=== PATIENT | male | born 1965 | race African-American/Black ===

== ENCOUNTER 2023-04-25 09:46 | Emergency (ER) | payer BC, SELFPAY ==
[2023-04-25] VITALS (15 sets, daily range): BP systolic 113–141; BP diastolic 81–94; PULSE 91–120; RESP 18–20; TEMP 37.1; O2SAT 95–98; BMI 20.4
--- NOTE | 2023-04-25 10:07 | ECG_ITS ---
[facility] Test Date: 2023-04-25 Pat Name: IZABELLA CARLTON Department: Room: - Gender: Male Director Of Regional Sales: : 1965 Requested By: SHARON AUUGST Order Number: [id number] Reading MD: SOFIA TINAJERO Measurements Intervals [place] Rate: 101 P: 63 IA: 142 QRS: 111 QRSD: 90 T: 14 QT: 336 QTc: 394 Interpretive Statements 1120 Sinus tachycardia 5120 Possible right ventricular hypertrophy 9140 abnormal rhythm ECG No previous ECG available for comparison Electronically Signed On 04-26-2023 6:51:53 EST by SOFIA TINAJERO
--- NOTE | 2023-04-25 10:24 | ED.GENADUL1 ---
HPI - General Adult General Chief complaint: Upper Respiratory Infection Stated complaint: FLU Time Seen by Provider: 04/25/23 10:21 Source: patient Mode of arrival: walk-in History of Present Illness HPI narrative: Patient is a 57-year-old male who is presenting to the Emergency Room Which chief complaint of nausea and vomiting anytime patient tries to eat something. Patient's having intermittent bilateral frontal headache, he's been taking to 600 mg tablets of ibuprofen daily to help with headaches. Patient did have intermittent nausea and vomiting with eating, he is able to drink with no difficulty. Patient also has cold sores on his mouth and tongue. 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 Patient says his multiple kids in Basketball obtain that has something similar. Patient has no recent traveling or trauma. Patient has no chest pain or shortness of breath. No abdominal pain. Patient works at [employer], and is also a lacrosse coach. 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 Patient looks very physically fit. . All systems are negative except as noted/marked. All systems reviewed and otherwise negative. . Nurses note and vital signs reviewed and patient is not hypoxic. General: The patient appears well and in no apparent distress. Patient is resting comfortably on cart. Patient is not toxic, lethargic, or listless Skin: Warm, dry, no pallor noted. There is no rash noted. No petechiae, purpura. Head: Normocephalic, atraumatic; Patient has evidence of herpes simplex to his lower lip, along with finger sores in his mouth as well, no other secondary signs of infection. Patient has clear drainage to the posterior pharynx, no cobblestoning. No unilateral swelling. Uvula midline, normal size. Eye: Normal conjunctiva, no drainage, EOMI. PERRL Ears, Nose, Mouth, and Throat: oral mucosa is moist. Nares patent. Mouth without vesicles. Cardiovascular: Regular Rate and Rhythm, no murmur, gallop, rub. Respiratory: Patient is in no distress, no accessory muscle use, lungs are clear to auscultation, no wheezing, rales or rhonchi Back: non-tender, no CVA tenderness bilaterally to percussion. No CT LS midline pain GI: soft, no tenderness to palpation, no masses appreciated. No rebound, guarding, or rigidity noted. No flank pain bilateral, No distention Musculoskeletal: Patient has full range of motion of all of the extremities, no motor, sensory, or focal neurological deficits Neurological: A&O x3, normal speech Psychiatric: Cooperative Related Data Previous Rx's Medication Instructions Recorded ondansetron 4 mg disintegrating 4 mg PO Q4H PRN nausea and 04/25/23 tablet vomiting 3 days #6 tabs prochlorperazine maleate 10 mg 10 mg PO Q8H PRN nausea and 04/25/23 tablet (Compazine) vomiting 24 hours #10 tabs Allergies Allergy/AdvReac Type Severity Reaction Status Date / Time No Known Drug Allergies Allergy Verified 04/25/23 10:03 Exam Constitutional Vital Signs, click to edit/add: Last Vital Signs Temp 98.7 F 04/25/23 09:57 Pulse 91 H 04/25/23 12:30 Resp 20 04/25/23 12:30 BP 138/87 04/25/23 11:45 Pulse Ox 98 04/25/23 12:30 O2 Del Method Room Air 04/25/23 09:57 Course Vital Signs Vital signs: Vital Signs Temperature 98.7 F 04/25/23 09:57 Pulse Rate 101 H 04/25/23 09:57 Respiratory Rate 18 04/25/23 09:57 Blood Pressure 141/94 H 04/25/23 09:57 Pulse Oximetry 96 04/25/23 09:57 Oxygen Delivery Method Room Air 04/25/23 09:57 Temperature 98.7 F 04/25/23 09:57 Pulse Rate 91 H 04/25/23 12:30 Respiratory Rate 20 04/25/23 12:30 Blood Pressure 138/87 04/25/23 11:45 Pulse Oximetry 98 04/25/23 12:30 Oxygen Delivery Method Room Air 04/25/23 09:57 Medical Decision Making MDM Narrative Medical decision making narrative: Patient felt slightly better after 1 L of IV fluid, IV Zofran, Compazine, Toradol and Decadron. Patient's lab testing showed no other significant abnormalities. Patient was given a work note this stated he was here today, and he missed work yesterday. Patient was sent home with prescription for Zofran and Compazine to use if needed in the future for Zofran or headache. Patient is extremely thankful and appreciative of help. No questions at discharge. Lab Data Labs: Lab Results 04/25/23 04/25/23 Range/Units 10:06 10:56 WBC 5.4 (4.0-11.0) 10^3/uL RBC 5.42 (4.70-6.10) 10^6/uL Hgb 15.8 (14.0-18.0) g/dL Hct 48.1 (42.0-54.0) % MCV 88.7 (80.0-94.0) fL MCH 29.2 (25.9-34.0) pg MCHC 32.8 (29.9-35.2) g/dL RDW 12.9 (11.0-15.0) % Plt Count 254 (150-450) 10^3/uL MPV 10.1 (9.5-13.5) fL Neut % (Auto) 60.7 (43.0-75.0) % Lymph % (Auto) 23.9 (20.5-60.0) % [place] % (Auto) 14.1 H (1.7-12.0) % Eos % (Auto) 0.4 L (0.9-7.0) % Baso % (Auto) 0.7 (0.2-2.0) % Neut # (Auto) 3.3 (1.4-6.5) 10^3/uL Lymph # (Auto) 1.3 (1.2-3.8) 10^3/uL [place] # (Auto) 0.8 (0.3-0.8) 10^3/uL Eos # (Auto) 0.0 (0.0-0.7) 10^3/uL Baso # (Auto) 0.0 (0.0-0.1) 10^3/uL Abs Immat Gran (auto) 0.01 (0.00-0.03) 10^3/uL Imm/Tot Granulo (auto) 0.2 (0.0-0.5) % Sodium 136 (136-145) mmol/L Potassium 4.2 (3.5-5.1) mmol/L Chloride 100 (98-107) mmol/L Carbon Dioxide 25.8 (21.0-32.0) mmol/L Anion Gap 14.4 BUN 12.0 (7.0-18.0) mg/dL Creatinine 1.22 (0.70-1.30) mg/dL Est GFR ( Amer) >60 (>=60) Est GFR (Non-Af Amer) >60 (>=60) BUN/Creatinine Ratio 9.8 Glucose 125 H (74-106) mg/dL Calcium 9.0 (8.5-10.1) mg/dL Total Bilirubin 0.6 (0.2-1.0) mg/dL AST 30 (15-37) U/L ALT 38 (16-63) U/L Alkaline Phosphatase 62 (46-116) U/L Troponin I High Sens 8.8 (4.0-76.1) pg/mL Total Protein 8.4 H (6.4-8.2) g/dL Albumin 3.5 (3.4-5.0) g/dL Globulin 4.9 g/dL Albumin/Globulin Ratio 0.7 Lipase 46.0 (16.0-77.0) U/L Influenza Type A Ag Negative Influenza Type B Ag Negative SARS-CoV-2 Ag (CV2AG) Negative (NEGATIVE) ECG Data Attestation: I personally reviewed and interpreted this ECG as follows: (EKG interpretation. Sinus tachycardia 101. Normal axis deviation. No acute ST elevation, no acute ectopy. QTC of 394. Artifact seen.) Discharge Plan Discharge Chief Complaint: Upper Respiratory Infection Clinical Impression: URI (upper respiratory infection), Headache, Flu-like symptoms, Herpes simplex Patient Disposition: Home, Self-Care Condition: Fair Prescriptions / Home Meds: New ondansetron 4 mg tablet,disintegrating 4 mg PO Q4H PRN (Reason: nausea and vomiting) 3 Days Qty: 6 0RF prochlorperazine maleate [Compazine] 10 mg tablet 10 mg PO Q8H PRN (Reason: nausea and vomiting) 1 Days Qty: 10 0RF Instructions: Sinusitis (ED), Oral Herpes Infection (ED), General Headache (ED) Additional Instructions: Use either nausea or Compazine to help with nausea that reoccurs. Use the Compazine to help with nausea or headache if it returns. Increase water, Gatorade, or Powerade. Stand Alone Forms: Work/School Release, Portal Instructions Referrals: Fly Estrada MD [Primary Care Provider] - 1 week Discharge Date/Time: 04/25/23 12:55
[2023-04-25 10:37] LABS: Influenza Virus A Antigen Negative; Influenza Virus B Antigen Negative; Internal Control Within Normal Limits; SARS-CoV-2 Ag NEGATIVE (NEGATIVE)
[2023-04-25] MEDS: ONDANSETRON PF 4 MG/2 ML VIAL IV (11:07)
[2023-04-25] MEDS: 0.9 % SODIUM CHLORIDE 1,000 ML 100 ML IV (11:07)
[2023-04-25 11:20] LABS: Basophils Percent Auto 0.7 % (0.2-2.0); Eosinophils Percent Auto 0.4 % (0.9-7.0); Hematocrit 48.1 % (42.0-54.0); Hemoglobin 15.8 g/dL (14.0-18.0); Immature Granulocytes Abs Auto 0.01 10^3/uL (0.00-0.03); Immature Granulocytes Pct Auto 0.2 % (0.0-0.5); Lymphocytes Absolute Auto 1.3 10^3/uL (1.2-3.8); Lymphocytes Percent Auto 23.9 % (20.5-60.0); Mean Corpuscular HGB Conc 32.8 g/dL (29.9-35.2); Mean Corpuscular Hemoglobin 29.2 pg (25.9-34.0); Mean Corpuscular Volume 88.7 fL (80.0-94.0); Mean Platelet Volume 10.1 fL (9.5-13.5); Monocytes Absolute Auto 0.8 10^3/uL (0.3-0.8); Monocytes Percent Auto 14.1 % (1.7-12.0); Neutrophils Absolute Auto 3.3 10^3/uL (1.4-6.5); Neutrophils Percent Auto 60.7 % (43.0-75.0); Platelet Count 254 10^3/uL (150-450); Red Blood Count 5.42 10^6/uL (4.70-6.10); Red Cell Distribution Width 12.9 % (11.0-15.0); White Blood Count 5.4 10^3/uL (4.0-11.0)
[2023-04-25] MEDS: KETOROLAC TROMETHAMINE 30 MG/ML VIAL 15 MG IVP (11:35)
[2023-04-25] MEDS: PROCHLORPERAZINE 10 MG/2 ML VIAL IV (11:35)
[2023-04-25] MEDS: DEXAMETHASONE SOD PHOS 10 MG/ML VIAL IV (11:35)
[2023-04-25 11:36] LABS: Alanine Aminotransferase 38 U/L (16-63); Albumin Globulin Ratio 0.7; Albumin Level 3.5 g/dL (3.4-5.0); Alkaline Phosphatase 62 U/L (46-116); Anion Gap 14.4; Aspartate Amino Transferase 30 U/L (15-37); BUN Creatinine Ratio 9.8; Bilirubin Total 0.6 mg/dL (0.2-1.0); Carbon Dioxide 25.8 mmol/L (21.0-32.0); Chloride 100 mmol/L (98-107); Estimated GFR (African America >60 (>=60); Estimated GFR (Non-African Ame >60 (>=60); Globulin 4.9 g/dL; Glucose 125 mg/dL (74-106); Potassium 4.2 mmol/L (3.5-5.1); Sodium 136 mmol/L (136-145); Total Protein 8.4 g/dL (6.4-8.2)
[2023-04-25 11:39] LABS: Troponin I High Sensitivity 8.8 pg/mL (4.0-76.1)
== END 2023-04-25 12:55 | disposition home or self-care (01) ==
PROVIDERS: Emergency Provider Emergency Medicine; PCP Family Medicine
DX: J06.9 Acute upper respiratory infection, unspecified (principal); R51.9 Headache, unspecified; B00.1 Herpesviral vesicular dermatitis
CPT/HCPCS: 36415; 80053; 83690; 84484; 85025; 87635; 87804; 87811; 93005; 96374; 96375; 99284; J0780; J1100; J1885; J2405

== ENCOUNTER 2024-03-25 12:04 | Outpatient (OUT) | payer BC, SELFPAY ==
[2024-03-25 13:02] LABS: Estimated Average Glucose 131 mg/dL; Glycohemoglobin A1C 6.2 % (4.5-6.2)
[2024-03-25 13:04] LABS: Basophils Absolute Auto 0.1 10^3/uL (0.0-0.1); Eosinophils Absolute Auto 0.3 10^3/uL (0.0-0.7); Eosinophils Percent Auto 5.5 % (0.9-7.0); Hematocrit 40.4 % (42.0-54.0); Hemoglobin 13.2 g/dL (14.0-18.0); Immature Granulocytes Abs Auto 0.01 10^3/uL (0.00-0.03); Immature Granulocytes Pct Auto 0.2 % (0.0-0.5); Lymphocytes Absolute Auto 1.9 10^3/uL (1.2-3.8); Lymphocytes Percent Auto 38.1 % (20.5-60.0); Mean Corpuscular HGB Conc 32.7 g/dL (29.9-35.2); Mean Corpuscular Hemoglobin 29.7 pg (25.9-34.0); Monocytes Absolute Auto 0.5 10^3/uL (0.3-0.8); Monocytes Percent Auto 8.8 % (1.7-12.0); Neutrophils Absolute Auto 2.4 10^3/uL (1.4-6.5); Neutrophils Percent Auto 46.4 % (43.0-75.0); Platelet Count 274 10^3/uL (150-450); Red Blood Count 4.44 10^6/uL (4.70-6.10); Red Cell Distribution Width 13.2 % (11.0-15.0); White Blood Count 5.1 10^3/uL (4.0-11.0)
[2024-03-25 13:55] LABS: Alanine Aminotransferase 29 U/L (16-63); Albumin Globulin Ratio 0.9; Albumin Level 3.4 g/dL (3.4-5.0); Alkaline Phosphatase 64 U/L (46-116); Anion Gap 11.8; Aspartate Amino Transferase 20 U/L (15-37); BUN Creatinine Ratio 13.8; Bilirubin Direct 0.1 mg/dL (0.0-0.2); Bilirubin Total 0.7 mg/dL (0.2-1.0); Calcium 8.9 mg/dL (8.5-10.1); Carbon Dioxide 28.4 mmol/L (21.0-32.0); Chloride 106 mmol/L (98-107); Chol HDL Ratio 4.8; Cholesterol 233 mg/dL (<=200); Estimated GFR (African America >60 (>=60 mL/min/1.73m^2); Estimated GFR (Non-African Ame >60 (>=60 mL/min/1.73m^2); Globulin 3.8 g/dL; Glucose 91 mg/dL (74-106); HDL Cholesterol 49 mg/dL (40-60); Potassium 4.2 mmol/L (3.5-5.1); Sodium 142 mmol/L (136-145); Thyroid Stimulating Hormone 1.502 uIU/mL (0.358-3.740); Total Protein 7.2 g/dL (6.4-8.2); Triglycerides 239 mg/dL (<=150); VLDL CHOLESTEROL 47.8 mg/dL
[2024-03-25 14:52] LABS: Prostate Specific Antigen Scrn 0.25 ng/mL (<=4.00)
[2024-03-26 04:07] LABS: Testosterone 293 ng/dL (264-916)
== END 2024-03-25 12:05 | disposition home or self-care (01) ==
LOC: LAB 12:06
PROVIDERS: PCP Family Medicine; Visit Provider Family Medicine
DX: Z00.00 Encounter for general adult medical examination without abnormal findings (principal); E66.813 Obesity, class 3; E66.01 Morbid (severe) obesity due to excess calories; Z68.41 Body mass index [BMI] 40.0-44.9, adult; Z79.899 Other long term (current) drug therapy; R73.03 Prediabetes; N50.9 Disorder of male genital organs, unspecified; R53.83 Other fatigue; Z12.5 Encounter for screening for malignant neoplasm of prostate
CPT/HCPCS: 36415; 80048; 80061; 80076; 83036; 84153; 84403; 84443; 85025; G0103

== ENCOUNTER 2025-03-27 10:53 | Outpatient (OUT) | payer BC, SELFPAY ==
--- OUTSIDE RECORDS SUMMARY | 2025-03-25 10:24 | XMS_ITS | Continuity of Care Document ---
Author Organization [facility] Address [address] [place] [address] Phone Care Team Providers Care Sports Bookmaker Name Role Phone Fly Estrada MD Primary Care Provider Fly Estrada MD Attending Provider Care Teams Patient Care Team Team Status: Active Member Role/Relationship Status Dates Fly Estrada MD Primary Care Provider Active Patient Care Team Team Status: Inactive Member Role/Relationship Status Dates Fly Estrada MD Primary Care Provider Active S tart: March 25, 2025 End: March 25, 2025[facility] BERNARDINO Estradattending ProviderActiveStart: March 25, 2025 End: March 25, 2025 Chief Complaint and Reason for Visit Chief Complaint Admit Date WELLNESS March 25, 2025 2:24pm Allergies, Adverse Reactions, Alerts Allergen Type Severity Reaction Last Updated Verified Status No Known Allergies Allergy Unknown March 25, 2025 2:48pmYesActive Social History Smoking Status Status Start Date End Date Date of Observa tion Never smoked tobacco (finding) March 25, 2025 2:50pm Observation Status Observation Response Date of Response Legal Sex [facility] (finding) [facility] 1965 Family History Relationship Condition Age at Onset Recorded Date/T tanya father Malignant neoplasm Unknown family memberDeceasedUnknownmotherDiabetes mellitusUnknownHypertensionUnknown Problems Active Problems Problem Diagnosis/Recorded Date Onset Date Stat us Class 3 severe obesity due t o excess calories with serious comorbidity and body mass index (BMI) of 40.0 to 44.9 in adult December 19, 2024 3:21pm Unknown Active Screening PSA (prostate spec ific antigen) December 23, 2024 9:29am Unknown Active Fatigue December 19, 2024 3:22pm Unknown Active Vasovagal syncope December 19, 2024 3:23pm Unknown Active Erectile dysfunction December 19, 2024 3:22pm Unkno wn Active Dyslipidemia December 19, 2024 3:21pm Unknown Active Other chest pain December 19, 2024 3:22pm Unknown Active Encounter for long-term (cur rent) use of medications December 23, 2024 9:29am Unknown Active DDD (degenerative disc disea se), cervical December 19, 2024 3:21pm Unknown Active Epigastric pain December 19, 2024 3:21pm Unknown Active GERD without esophagitis December 19, 2024 3:22pm U nknown Active Prediabetes December 19, 2024 3:22pm Unknown Active Chronic rhinosinusitis December 19, 2024 3:20pm Unk nown Active Irritable bowel syndrome wit h predominant constipation December 19, 2024 3:22pm Unknown Active BPH associated with nocturia December 23, 2024 9:40 am Unknown Active Inactive/Resolved Problems Problem Diagnosis/Recorded Date Onset Date Stat Benign prostatic hyperplasia with urinary obstruction December 19, 2024 3:18pm Unknown Resolved Medications Medication Status Dose Units Route Directions Qty Days Refills S tart Date Stop Date End Date Reason(s) Instructions Adherence Acetaminophen-Codeine 300-30 mg tablet Active TABPOMarch 25, 2025 12:00amComplies with drug therapyChlorhexidine Gluconate 0.12 % mouthwashActivePOMarch 25, 2025 12:00amComplies with drug therapySemaglutide (Weight Loss) (Wegovy) 0.25 mg/0.5 mL pen injectorActive0.25 MGSUBCUTevery sovk89BsnfvqonMarch 25, 2025 12:00amadminister weeks 1 through 4 of therapyComplies with drug therapyMeloxicam 15 mg spjxrkBvrnptzncjlj87GTTLXzrqu December 18, 2024 11:00pmMarch 25, 2025 2:49pmMethylprednisolone 4 mg knubidAntwpllmzenj3NLBURb DirectedSe2024 11:00pmSept2024 9:00amOmeprazole 40 mg capsule,delayed release(DR/EC)Uehtrb40NMJIWbekx dailyDecember 18, 2024 11:00pmComplies with drug therapyLinaclotide 290 mcg swquolgRsfkjlaxmiwv530UORSEQeeif morningSe2024 11:00pmSept2024 9:00amTamsulosin 0.4 mg capsuleDiscontinued0.4MGPODaily at zjgwitg995 December 22, 2024 11:00pmDe2024 2:49pmSemaglutide (Ozempic) 0.25 mg or 0.5 mg (2 mg/3 mL) pen injectorDiscontinued0.25MGSUBCUTevery week31 December 22, 2024 11:00pmDe2024 2:49pmx 4 weeks, then 0.5 mg weekly Vital Signs Vital Reading Result Reference Range Collection Date/Time Height 74 [in_i] March 25, 2025 2:98bwSuvxhh763.05 kgMarch 25, 2025 2:47pmBody Hhjsdcgytbb51.8 [degF]97.6-99.0March 25, 2025 2:47pmHeart Olcv594 /min 60-100March 25, 2025 2:47pmRespiratory rate18 /nza27-10GiydyastMarch 25, 2025 2:47pmOxygen saturation by Pulse gbybhhnf92 %95-100March 25, 2025 2:47pmBP Bafxvqjt333 mm[Hg]100-140March 25, 2025 2:47pmBP Nqkqfwtxs19 mm[Hg]60-100 March 25, 2025 2:47pmBMI (Body Mass Index)28.8 kg/w9Ikceqwrk2024 2:47pm Advance Directives Advance Directive Response Recorded Date/ Time Advance Directives No December 8:50am Insurance Providers Guarantor Peter Hsieh Address [address] [place] [address]Dgavzlv Info.Home Phone: Coverage Status Update:2024 Payer Group Member ID Coverage Type Subscriber Relationship to Subscriber Effective Date Expiration Date Azam SCHAFFER [id number] Mcdonald Id: [id number] [address] [place] [address] Home Phone: Self Encounters Encounter Location(s) Arrival/Admit Date Discharge/Departure Date Discharge/Departure Disposition Provider(s) Departed Physician/ Provider Office Visit -[facility] Medicine Shree March 25, 2025 2:24pm March 25, 2025 3:22pm Discharged to home care or self care (routine discharge) Fly Estrada MD
--- OUTSIDE RECORDS SUMMARY | 2025-03-27 10:58 | XMS_ITS | Clinical Summary ---
Author Organization [facility] Address [address] [place] [address] Care Team Providers Care Commodity Buyer Name Role Phone Fly Estrada MD Primary Care Provider [phone] Fly Estrada MD Unavailable Allergies No known active allergies Medications MedicationSigDispense QuantityRefillsLast FilledStart DateEnd DateStatus linaCLOtide (Linzess) 290 MCG capsule Indications:Irritable bowel syndrome with predominant constipationTake 1 capsule (290 mcg) by mouth in the morning. Take before meals. Do not crush or chew.. 30 capsule 4Active omeprazole (PriLOSEC) [address] capsule Indications:Gastroesophageal reflux disease without esophagitisTAKE 1 CAPSULE BY MOUTH IN THE MORNING AND 1 CAPSULE IN THE EVENING BEFORE MEALS. DONT CRUSH OR CHEW 180 capsule 5Active Active Problems ProblemNoted DateDiagnosed DateEpigastric pain10/14/2024 Assessment & Plan (10/14/2024 3:28 PM EDT): Pain likely related to severe reflux. Check UGI. Gastroesophageal reflux disease without zuamtnfsqeh44/07/2025 Assessment & Plan (10/14/2024 3:29 PM EDT): Severe symptoms and start omeprazole. Vasovagal mnvxyne2210/14/2024 Assessment & Plan (10/14/2024 3:29 PM EDT): Episode likely triggered by pain and monitor. Increase fluids. Lfaowvd4604/18/2024Encounter for long-term current use of oudejdpsvy87/09/2025 Screening PSA (prostate specific antigen)04/18/2024DDD (degenerative disc disease), soozpyuy80/16/2024Irritable bowel syndrome with predominant sinqduhnaxfn36/16/2024 Assessment & Plan (03/25/2024 12:31 PM EST): Continued symptoms and resume linzess. Znhcmwusfij38/16/2024nnual physical exam03/25/2024 Assessment & Plan (03/25/2024 12:30 PM EST): Due for labs. Discussed proper diet and regular aerobic exercise. Need aerobic exercise 5-6 days a week for 30 minutes at a time. Smaller portions and limit total calories. Colonoscopy every 10 years. Tetanus every 10 years. Advised not to smoke. Discussed daily Aspirin therapy. Chronic ywpqwliwihjcjf73/16/8051Smblimpfupcd16/16/2024lass 3 severe obesity due to excess calories with serious comorbidity and body mass index (BMI) of40.0 to 44.9 in adult03/25/2024 Assessment & Plan (03/25/2024 12:30 PM EST): Weight loss indicated Other chest pain03/25/2024 Assessment & Plan (03/25/2024 12:31 PM EST): C/o fatigue, SOB and chest tightness triggered with activity. Risk factors for CAD include obesity,dyslipidemia, and prediabetes. Check treadmill cardiolyte stress test. Erectile vuyhtwiouzg15/28/2016 Overview (03/25/2024): ========= 03/07/2016 Since 2007 erectile dysfunction. Failed Cialis up to 20 mg. Benign prostatic hyperplasia with urinary bmwccgwttub75/28/2016 Overview (03/25/2024): 03/07/2016 A 2 year history of urgency frequency AUA symptom score 20/5. Nocturia x4. No prior medication. Some urge incontinence urinalysis negative for infection. ^^^^^ cystoscopy high-riding narrow bladder neck. No lateral lobe hypertrophy. -did not tolerate flomax ==== 01/25/2017 ==== Did much better with Uroxatral trial. Urgency frequency nocturia resolved. Does have some scoring of the stream. Will continue to monitor however. problem replaced by 2018 ICD 17 January Update Encounters DateTypeDepartmentCare QgwoOaavdyxbtnx45/22/2025 4:[address] [facility] [address] [place] [id number] Natanael Lake DPM Plantar fasciitis (Primary Dx)01/29/2025amboo flowsheet [facility] [address] [place] [phone] Natanael Lake DPM 01/29/2025Travelfrom Last 3 Months Family History RelationNameStatusCommentsFatherAliveMotherAlive Social History Tobacco UseTypesPacks/DayYears UsedDateSmoking Tobacco: NeverSmokeless Tobacco: Never Tobacco Cessation:Counseling Given: Not Answered Alcohol UseStandard Drinks/WeekCommentsYes2 (1 standard drink = 0.6 oz pure alcohol)typically tacovslkT1670 Health LiteracyAnswerDate RecordedHow often do you need to have someone help you when you read instructions, pamphlets, or other written material from your doctor or pharmacy?Never10/13/2024Humiliation, Afraid, Rape, and Kick questionnaireAnswerDate RecordedWithin the last year, have you been afraid of your partner or ex-partner?No10/13/2024Within the last year, have you been humiliated or emotionally abused in other ways by your partner or ex-partner?No10/13/2024Within the last year, have you been kicked, hit, slapped, or otherwise physically hurt by your partner or ex-partner?No 10/13/2024Within the last year, have you been raped or forced to have any kind of sexual activity by your partner or ex-partner?No10/13/2024Social Connection and Isolation PanelAnswerDate RecordedIn a typical week, how many times do you talk on the phone with family, friends, or neighbors?Once a week07/06/2025How often do you get together with friends or relatives?Twice a week10/13/2024How often do you attend yarsanism or hoahaoism services?More than 4 times per year 10/13/2024Do you belong to any clubs or organizations such as yarsanism groups, unions, fraternal or athletic groups, or school groups?Yes10/13/2024How often do you attend meetings of the clubs or organizations you belong to?More than 4 times per year10/13/2024re you , , , , never , or living with a partner?Living with fzdixfw2210/13/2024UDIT-CAnswerDate RecordedQ1: How often do you have a drink containing alcohol?2-3 times a week 10/13/2024Q2: How many drinks containing alcohol do you have on a typical day when you are drinking?5 or 6010/13/2024Q3: How often do you have six or more drinks on one occasion?Qghelw0410/13/2024Overall Financial Resource Strain (CARDIA)AnswerDate RecordedHow hard is it for you to pay for the very basics like food, housing, medical care, and heating?Not very hard10/13/2024[facility] [place] [facility] Occup[facility] - Occupational Stress QuestionnaireAnswerDate RecordedDo you feel stress - tense, restless, nervous, or anxious, or unable to sleep at night because yourmind is troubled all the time - these days?Very much 10/13/2024Exercise Vital SignAnswerDate RecordedOn average, how many days per week do you engage in moderate to strenuous exercise (like a brisk walk)?4 days 10/13/2024On average, how many minutes do you engage in exercise at this level? 60 min10/13/2024Hunger Vital SignAnswerDate RecordedWithin the past 12 months, you worried that your food would run out before you got the money to buymore. Never true10/13/2024Within the past 12 months, the food you bought just didn't last and you didn't have money to get more.Never true10/13/2024PRAPARE - TransportationAnswerDate RecordedIn the past 12 months, has lack of transportation kept you from medical appointments or from getting medications?No 10/13/2024In the past 12 months, has lack of transportation kept you from meetings, work, or from getting things needed for daily living?No10/13/2024 Housing Stability Vital SignAnswerDate RecordedIn the last 12 months, was there a time when you were not able to pay the mortgage or rent on time?No10/13/2024 Number of Times Moved in the Last YearNot on file10/13/2024t any time in the past 12 months, were you homeless or living in a custodial (including now)?No 10/13/2024Sex and Gender InformationValueDate RecordedSex Assigned at BirthNot on fileLegal LhaEfco8006/22/2022 11:03 PM EDTGender IdentityNot on fileSexual OrientationNot on file Last Filed Vital Signs Vital SignReadingTime TakenCommentsBlood Dgnjcafo486/7807 11:33 AM EDT Gszhl8359 11:33 AM EDCSezxywuzjlo19.6 ??C (97.8 ??F)10/14/2024 11:33 AM EDTRespiratory Soox4543 11:33 AM EDTOxygen Pkqbvmogzo88%10/14/2024 11:33 AM EDTInhaled Oxygen Concentration--Zlauwf315 kg (230 lb)01/29/2025 4:02 PM EDT Hehjoo129 cm (6' 2 )01/29/2025 4:02 PM EDTBody Mass Index29.5301/29/2025 4:02 PM EDT Plan of Treatment Health MaintenanceDue DateLast DoneCommentsCT Zxrrwptkylui94/16/1968FIT-DNA 1965FIT1965FOBT1965 0008Tataamhwjropd71/16/1968COVID-19 Vaccine ( season), 07/16/2020Influenza Vaccine (#1) 0955Lkqlfgnwolw50, 03/25/2019Colorectal Cancer Screening 03/25/2029Pneumococcal Vaccine: Pediatrics (0 to 5 Years) and At-Risk Patients (6 to 64 Years)Aged OutNo longer eligible based on patient's age to complete this topic Insurance Care Teams Team MemberRelationshipSpecialtyStart DateEnd Date Fly Estrada MD [facility] - [facility] Fly Estrada MD [address] [place] [address] [facility] - [facility]
--- OUTSIDE RECORDS SUMMARY | 2025-03-27 10:58 | XMS_ITS | Clinical Summary ---
Author Organization [facility] / ?.?? tem Address [facility] [place] [id number] [address] [place] [address] Care Team Providers Care Supervisor Cytology Name Role Phone Fly Estrada MD Primary Care Provider [phone] Allergies No known active allergies Medications MedicationSigDispense QuantityRefillsLast FilledStart DateEnd DateStatus sildenafil (REVATIO) 20 mg tablet Take 1-5 tablets daily PRN for sexual activity (not to exceed 100mg in one day) 50 tablet Active Additional Information Patient not taking.Reported on 09/26/2024 Active Problems ProblemNoted DateDiagnosed DateBreast tenderness in male01/25/2017 Overview (01/25/2017): ==== 01/25/2017 ==== New problem, additional workup planned. The patient had developed some left-sided breast enlargement and tenderness. On exam there is some firmness in the midline upper quadrant left breast. No discharge. PLAN: Patient needs to contact his primary care doctor for further evaluation management such. Patient understands the importance of doing so. Benign prostatic hyperplasia with urinary kqhvpeatwlp92/28/2016 Overview (01/08/2018): 03/07/2016 A 2 year history of urgency [...] replaced by 2018 ICD 17 January Update Assessment & Plan (10/19/2016 1:49 PM EDT): Urination has gradually improved. He is off of Flomax. He has nocturia is minimal. His AUA symptom score is still elevated 18/4. Plan: Will try him on Uroxatral. Prescription written to return to clinic 2 months Assessment & Plan (06/06/2016 4:00 PM EST): Directly visualized and interpreted uroflow PVR study [facility] dated March 09, 2016. Voided volume was somewhat insufficient. 106 cc. Average flow rate 7.4 maximum for 12.2 cc/second PVR 44 cc. Flow curve attenuated Has not been on any alpha blockers. We discussed mechanism action. Side effects. What to expect. Return to clinic in 6 weeks Assessment & Plan (03/07/2016 2:02 PM EST): Evaluation with renal bladder ultrasound, cystoscopy, CMG flow study Erectile qcajentbfqk01/28/2016 Overview (03/07/2016): ========= 03/07/2016 Since 2007 erectile dysfunction. Failed Cialis up to 20 mg. Assessment & Plan (01/25/2017 2:43 PM EDT): Generic sildenafil work. Patient request paper Prescription. Assessment & Plan (10/19/2016 1:41 PM EDT): Had issues with insurance and has Viagra. Despite our sending the appropriate documentation. Patient did not have any side effects attributable to Viagra in the past. Plan: We discussed generic sildenafil in the proper dosing. Assessment & Plan (08/29/2016 3:48 PM EDT): Insurance issues regarding the Viagra. Will resend them with diagnosis code attached Family History Medical HistoryRelationNameCommentsAneurysmBrotherRectal cancerFather HypertensionMotherRelationNameStatusCommentsBrotherDeceasedFatherAliveMother Alive Social History Tobacco UseTypesPacks/DayYears UsedDateSmoking Tobacco: NeverSmokeless Tobacco: NeverAlcohol UseStandard Drinks/WeekCommentsYes0 (1 standard drink = 0.6 oz pure alcohol)weekendsChildcareAnswerDate InodobmfUoxpqslovBiokxyn64/12/2019Employment AnswerDate VypcfokqWtptfdpcdkHqsbjqo83/12/2019Hunger ScreeningAnswerDate RecordedWithin the past 12 months we worried whether our food would run out before we got money to buy more.Never True09/26/2024Within the past 12 months the food we bought just didn't last and we didn't have money to get more.Never True09/26/2024Purpose - LifeAnswerDate RecordedPurpose and direction in life Zlamwqp9005/21/2020ex and Gender InformationValueDate RecordedSex Assigned at BirthNot on fileLegal AbzQicn7111/13/2014 11:22 AM EDTGender IdentityNot on file Sexual OrientationNot on file Last Filed Vital Signs Vital SignReadingTime TakenCommentsBlood Haigqwfo150/9409/27/2024 3:00 AM EDT Ghkfu463409/27/2024 3:00 AM TTNGqbxctbpmwb03.4 ??C (97.5 ??F)09/26/2024 11:17 PM EDTRespiratory Znah308709/27/2024 3:00 AM EDTOxygen Pagejcxaeo93%09/27/2024 3:00 AM EDTInhaled Oxygen Concentration--Qqeswj911.3 kg (230 lb)09/26/2024 11:17 PM LPARviloy947 cm (6' 2 )09/26/2024 11:17 PM EDTBody Mass Index29.53009/26/2024 11:17 PM EDT Plan of Treatment Health MaintenanceDue DateLast DoneCommentsDepression Vpzeabwrc81/16/1980Adult BMI Follow Up Plan06/23/1985DTaP,Tdap and Td Vaccines (1 - Tdap)06/23/1986Zoster (Shingles) Vaccine (1 of 2)06/23/2017COVID-19 Vaccine (3 - 2024- season) 504/, 07/16/2020Influenza Brheane4412/09/2024dult BMI Screening Tobacco Ypbuyokbp53 Medical Devices Not on file Insurance Care Teams Team MemberRelationshipSpecialtyStart DateEnd Date Fly Estrada MD PCP - Psgbopb92/28/16
[2025-03-27 11:19] LABS: Hematocrit 42.2 % (42.0-54.0); Hemoglobin 13.8 g/dL (14.0-18.0); Immature Granulocytes Abs Auto 0.00 10^3/uL (0.00-0.03); Immature Granulocytes Pct Auto 0.0 % (0.0-0.5); Lymphocytes Absolute Auto 2.4 10^3/uL (1.2-3.8); Mean Corpuscular HGB Conc 32.7 g/dL (29.9-35.2); Mean Corpuscular Hemoglobin 29.7 pg (25.9-34.0); Mean Corpuscular Volume 90.9 fL (80.0-94.0); Platelet Count 257 10^3/uL (150-450); Red Blood Count 4.64 10^6/uL (4.70-6.10); White Blood Count 4.7 10^3/uL (4.0-11.0)
[2025-03-27 11:56] LABS: Sodium 138 mmol/L (136-145)
[2025-03-27 11:57] LABS: Alanine Aminotransferase 42 U/L (16-63); Anion Gap 5.8; Aspartate Amino Transferase 23 U/L (15-37); Blood Urea Nitrogen 15.0 mg/dL (7.0-18.0); Calcium 8.9 mg/dL (8.5-10.1); Carbon Dioxide 30.1 mmol/L (21.0-32.0); Chloride 107 mmol/L (98-107); Estimated GFR (African America >60 (>=60 mL/min/1.73m^2); Estimated GFR (Non-African Ame >60 (>=60 mL/min/1.73m^2); Glucose 119 mg/dL (74-106); Potassium 4.9 mmol/L (3.5-5.1)
[2025-03-27 11:58] LABS: Albumin Globulin Ratio 0.9; Albumin Level 3.6 g/dL (3.4-5.0); Alkaline Phosphatase 84 U/L (46-116); Cholesterol 259 mg/dL (<=200); Globulin 3.8 g/dL; HDL Cholesterol 47 mg/dL (40-60); Thyroid Stimulating Hormone 1.598 uIU/mL (0.358-3.740); Total Protein 7.4 g/dL (6.4-8.2); Triglycerides 190 mg/dL (<=150); VLDL CHOLESTEROL 38.0 mg/dL
== END 2025-03-27 10:54 | disposition home or self-care (01) ==
LOC: LAB 10:55
PROVIDERS: PCP Family Medicine; Visit Provider Family Medicine
DX: R53.83 Other fatigue (principal)
CPT/HCPCS: 36415; 80053; 80061; 83036; 84403; 84443; 85025; G0103